=== PATIENT | female | born 1990 | race Hispanic/Latino ===

== ENCOUNTER 2020-06-22 12:07 | Day surgery (SDC) | payer MEDICAID ==
[2020-06-16 11:54] LABS: BASOPHILS % (AUTO) 0.5 % (0.0-5.0); EOSINOPHILS % (AUTO) 1.3 % (0.0-8.0); HEMATOCRIT 40.5 % (36-48); LYMPHOCYTES % (AUTO) 30.9 % (21.0-51.0); MEAN CORPUSCULAR HEMOGLOBIN 27.5 pg (27.0-33.0); MEAN CORPUSCULAR HGB CONC 32.3 g/dL (32.0-36.0); MEAN CORPUSCULAR VOLUME 84.9 fL (79-99); MONOCYTES % (AUTO) 3.7 % (3.0-13.0); NEUTROPHILS % (AUTO) 63.2 % (40.0-77.0); PLATELET COUNT (AUTO) 448 K/uL (130-400); RED BLOOD CELL COUNT(AUTO) 4.77 MIL/uL (4.00-5.50); WHITE BLOOD COUNT (AUTO) 10.9 K/uL (4.8-10.8)
[2020-06-22] VITALS (19 sets, daily range): BP systolic 101–130; BP diastolic 56–80
[~2020-06-22] VITALS: Ht 170.2 cm; Wt 115.8 kg
[~2020-06-22 12:07] MED LIST: METFORMIN PO
[2020-06-22] MEDS ORDERED: SODIUM CHLORIDE 0.9% 1000ML 1,000 ML IV ONE (12:19)
--- NOTE | 2020-06-22 12:30 | NUR ---
preop pt arrived amb in no distress. pt oriented to call light and room. will continue to monitor pt
[2020-06-22] MEDS ORDERED: INSULIN HUMULIN R 100 UNIT/ML 3ML ONE (13:07)
--- NOTE | 2020-06-22 13:15 | NUR ---
report pt fbs 270. dr thurman informed and received new orders. regular insulin 5 units sq to jonh
[2020-06-22] MEDS ORDERED: MIDAZOLAM HCL 1 MG/ML 2ML VIAL ONE (14:56)
[2020-06-22] MEDS ORDERED: SUCCINYLCHOLINE CHLORIDE 20 MG/ML 10 ML VIAL ONE (14:56)
[2020-06-22] MEDS ORDERED: LIDOCAINE PF 2% 5ML ABBOJECT ONE (14:56)
[2020-06-22] MEDS ORDERED: PROPOFOL 10 MG/ML 20ML VIAL IV ONE (14:57)
[2020-06-22] MEDS ORDERED: FENTANYL CITRATE PF 50 MCG/1 ML 2ML VIAL ONE (14:57)
[2020-06-22] MEDS ORDERED: ONDANSETRON HCL 4 MG/2 ML VIAL ONE ×2 (15:13→16:22)
[2020-06-22] MEDS ORDERED: EPHEDRINE SULFATE 50 MG/ML AMPULE ONE (15:22)
[2020-06-22] MEDS ORDERED: MEPERIDINE-PF 25 MG/ML SYG ONE ×2 (15:49→16:01)
--- NOTE | 2020-06-22 16:50 | NUR ---
DAY PT ARRIVAL PT ARRIVED FROM PACU STATES REDUCED NAUSEA. ORIENTED TO ROOM.
--- NOTE | 2020-06-22 17:25 | NUR ---
NAUSEA AND EMESIS PT STATES SMALL EMESIS EPISODE , AND RELIEF OF NAUSEA AFTER EPISODE. PT IS NOTED AAOx4
--- NOTE | 2020-06-22 17:50 | NUR ---
DAY PT DC PT IN NO APPARENT DISTRESS, STATES REDUCED NAUSEA INSTRUCTIONS GIVEN TO PT AND SISTER AT BEDSIDE. INFORMED OF NEED TO FOLLOW UP WITH PRIMARY IN ONE WEEK , AND THAT INFO WAS GIVEN TO ANSWERING SERVICE. PT TAKEN BY WHEELCHAIR TO MAIN ENTRANCE.
[2020-06-22] MEDS ORDERED: INSULIN HUMULIN R 100 UNIT/ML 3ML SQ SCH (18:00)
== END 2020-06-22 17:50 | disposition home or self-care (01) ==
LOC: DAH 12:07
PROVIDERS: ATTEND Specialist
DX: N92.0 Excessive and frequent menstruation with regular cycle (principal); E11.9 Type 2 diabetes mellitus without complications; E66.9 Obesity, unspecified; F17.210 Nicotine dependence, cigarettes, uncomplicated; Z79.899 Other long term (current) drug therapy; Z20.828 Contact with and (suspected) exposure to other viral communicable diseases
CPT/HCPCS: 36415 ×2; 58120; 82948 ×2; 84703; 85025; 86850 ×2; 86900 ×2; 86901 ×2; A4215; A4221; A4222; A4223; A4351; A4663; C9803; J0330; J1815; J2001; J2175 ×2; J2250; J2405 ×2; J2704; J3010; J3490; J7030; U0003

== ENCOUNTER 2020-10-24 21:20 | Emergency (ER) | payer MEDICAID ==
[2020-10-24 21:45] LABS: BASOPHILS % (AUTO) 0.6 % (0.0-5.0); EOSINOPHILS % (AUTO) 3.8 % (0.0-8.0); HEMATOCRIT 41.8 % (36-48); LYMPHOCYTES % (AUTO) 25.7 % (21.0-51.0); MEAN CORPUSCULAR HEMOGLOBIN 27.2 pg (27.0-33.0); MEAN CORPUSCULAR HGB CONC 32.3 g/dL (32.0-36.0); MEAN CORPUSCULAR VOLUME 84.1 fL (79-99); MONOCYTES % (AUTO) 4.6 % (3.0-13.0); PLATELET COUNT (AUTO) 458 K/uL (130-400); RED BLOOD CELL COUNT(AUTO) 4.97 MIL/uL (4.00-5.50); RED CELL DISTRIBUTION WIDTH 13.2 % (11.0-15.5); WHITE BLOOD COUNT (AUTO) 12.9 K/uL (4.8-10.8)
[2020-10-24 21:59] LABS: CREATININE 0.7 mg/dL (0.5-1.5)
[2020-10-24 22:09] LABS: ALBUMIN 3.6 g/dL (3.5-5.0); BILIRUBIN,TOTAL 0.4 mg/dL (0.2-1.0); TOTAL PROTEIN, SERUM 8.6 g/dL (6.0-8.3)
[2020-10-24 22:33] LABS: APPEARANCE,URINE Cloudy (CLEAR); BILIRUBIN,URINE Negative (NEGATIVE); COLOR,URINE Dark Yellow (YELLOW); GLUCOSE, URINE (UA) 500 mg/dL (NEGATIVE); KETONES,URINE Trace mg/dL (NEGATIVE); LEUKOCYTE ESTERASE ,URINE Trace (NEGATIVE); NITRATE,URINE Negative (NEGATIVE); OCCULT BLOOD,URINE Large (NEGATIVE); PROTEIN,URINE POS 1+ mg/dL (NEGATIVE)
[2020-10-24 22:42] LABS: HCG,QUAL RESULT NEGATIVE (NEGATIVE)
[2020-10-24 23:21] LABS: BACTERIA,URINE Few /HPF (None Seen); RBC,URINE >100 /HPF (0-1); SQUAMOUS EPITHELIAL CELL,UR 0-2 /HPF (0-2)
== END 2020-10-24 23:59 | disposition home or self-care (01) ==
LOC: EDH 21:20
DX: N93.9 Abnormal uterine and vaginal bleeding, unspecified (principal); Z72.0 Tobacco use
CPT/HCPCS: 36415; 80053; 81001; 81025; 84702; 85025

== ENCOUNTER 2020-11-18 13:00 | Inpatient (IN) | payer MEDICAID ==
[~2020-11-18] VITALS: Ht 170.2 cm; Wt 114.1 kg
[2020-11-18 11:54] LABS: BASOPHILS % (AUTO) 0.5 % (0.0-5.0); EOSINOPHILS % (AUTO) 2.8 % (0.0-8.0); HEMATOCRIT 42.2 % (36-48); LYMPHOCYTES % (AUTO) 26.9 % (21.0-51.0); MEAN CORPUSCULAR HEMOGLOBIN 27.5 pg (27.0-33.0); MEAN CORPUSCULAR HGB CONC 32.7 g/dL (32.0-36.0); MEAN CORPUSCULAR VOLUME 84.1 fL (79-99); MONOCYTES % (AUTO) 4.7 % (3.0-13.0); NEUTROPHILS % (AUTO) 64.8 % (40.0-77.0); PLATELET COUNT (AUTO) 452 K/uL (130-400); RED BLOOD CELL COUNT(AUTO) 5.02 MIL/uL (4.00-5.50); RED CELL DISTRIBUTION WIDTH 13.1 % (11.0-15.5)
[2020-11-18 12:09] LABS: INR 0.98 (0.85-1.15); PROTHROMBIN TIME 10.7 SEC (9.6-11.6)
[2020-11-18 12:11] LABS: PARTIAL THROMBOPLASTIN TIME 26.2 SEC (26.3-35.5)
[2020-11-22 11:48] VITALS: BP 129/71
[2020-11-23] VITALS (24 sets, daily range): BP systolic 106–143; BP diastolic 56–105
[2020-11-23] MEDS ORDERED: 0.9%NACL 1000ML 1,000 ML IV ONE (07:28)
[2020-11-23] MEDS ORDERED: SCOPOLAMINE HYDROBROMIDE 1 EACH ADH..PATCH TD ONE (07:38)
[2020-11-23] MEDS: CEFAZOLIN SODIUM 1 GM VIAL ONE ×2 (07:41→08:33)
[2020-11-23] MEDS ORDERED: LIDOCAINE PF 100MG/5ML (2%) SYRINGE 5ML ONE (07:52)
[2020-11-23] MEDS ORDERED: SUCCINYLCHOLINE 200MG/10ML SYR ONE (07:52)
[2020-11-23] MEDS ORDERED: FENTANYL CITRATE PF 50 MCG/1 ML 2ML VIAL ONE ×2 (07:52→08:59)
[2020-11-23] MEDS ORDERED: PROPOFOL 10 MG/ML 20ML VIAL IV ONE (07:52)
[2020-11-23] MEDS ORDERED: MIDAZOLAM HCL 1 MG/ML 2ML VIAL ONE (07:52)
[2020-11-23] MEDS ORDERED: ROCURONIUM 10MG/1ML SYR 10 MG/ML ML ONE (07:52)
[2020-11-23 07:57] LABS: CREATININE 0.7 mg/dL (0.5-1.5); POTASSIUM 4.4 mmol/L (3.5-5.1)
[2020-11-23] MEDS ORDERED: LACTATED RINGERS 1000ML 1,000 ML IV SCH (08:00)
[2020-11-23] MEDS ORDERED: KETAMINE 50MG/ML SYRINGE 50 MG/ML DISP.SYRIN IV ONE (08:00)
[2020-11-23] MEDS ORDERED: CEFAZOLIN SODIUM 100 GM IV PRN (08:00)
[2020-11-23] MEDS ORDERED: GLYCOPYRROLATE 1 MG/5 ML SYRINGE ONE (08:53)
[2020-11-23] MEDS ORDERED: NEOSTIGMINE 5MG/5ML SYR IV ONE (08:54)
[2020-11-23] MEDS ORDERED: ROPIVACAINE 0.5% 5MG/ML 30ML IJ ONE (09:44)
[2020-11-23] MEDS ORDERED: ONDANSETRON 4MG INJ ONE (09:59)
[2020-11-23] MEDS ORDERED: MEPERIDINE-PF 25 MG/ML SYG ONE ×2 (10:28→10:42)
[2020-11-23] MEDS ORDERED: IBUPROFEN 600 MG TABLET PO PRN (12:00)
[2020-11-23] MEDS ORDERED: ACETAMINOPHEN WITH CODEINE 1 TAB TAB PO PRN (12:00)
[2020-11-23] MEDS ORDERED: BISACODYL 10 MG SUPP.RECT RC PRN (12:00)
[2020-11-23] MEDS ORDERED: PROMETHAZINE HCL 25 MG/ML 1ML AMPULE IM PRN (12:00)
[2020-11-23] MEDS ORDERED: MEPERIDINE-PF 75 MG/ML SYG ONE (12:56)
[2020-11-23] MEDS: PROMETHAZINE HCL 25 MG/ML 1ML AMPULE IM PRN ×3 (13:27→21:59)
[2020-11-23] MEDS: INSULIN HUMULIN R 100 UNIT/ML 3ML SQ SCH ×2 (17:10→21:46)
[2020-11-23] MEDS: MEPERIDINE-PF 75 MG/ML SYG IM PRN ×2 (17:25→21:58)
[2020-11-23] MEDS: LACTATED RINGERS 1000ML 1,000 ML IV SCH ×2 (17:26→23:40)
[2020-11-23] MEDS: SIMETHICONE 80 MG TAB.CHEW PO PRN (21:48)
[2020-11-23] MEDS: DOCUSATE SODIUM 100 MG CAP PO PRN (21:48)
[2020-11-24 03:45] VITALS: BP 118/70
[2020-11-24 06:29] LABS: HEMATOCRIT 37.7 % (36-48); MEAN CORPUSCULAR HEMOGLOBIN 27.3 pg (27.0-33.0); MEAN CORPUSCULAR HGB CONC 31.8 g/dL (32.0-36.0); MEAN CORPUSCULAR VOLUME 85.9 fL (79-99); RED BLOOD CELL COUNT(AUTO) 4.39 MIL/uL (4.00-5.50); RED CELL DISTRIBUTION WIDTH 13.1 % (11.0-15.5); WHITE BLOOD COUNT (AUTO) 12.5 K/uL (4.8-10.8)
[2020-11-24 06:44] LABS: ALBUMIN 2.8 g/dL (3.5-5.0); BILIRUBIN,TOTAL 0.6 mg/dL (0.2-1.0); CREATININE 0.6 mg/dL (0.5-1.5); TOTAL PROTEIN, SERUM 6.5 g/dL (6.0-8.3)
[2020-11-24 06:50] LABS: HEMOGLOBIN A1C 12.2 % (4.0-6.0)
[2020-11-24 07:25] VITALS: BP 112/75
[2020-11-24] MEDS: INSULIN HUMULIN R 100 UNIT/ML 3ML SQ SCH ×4 (07:30→21:08)
[2020-11-24] MEDS: LACTATED RINGERS 1000ML 1,000 ML IV SCH (07:33)
[2020-11-24] MEDS ORDERED: ACETAMINOPHEN WITH CODEINE 1 TAB TAB PO PRN (10:30)
[2020-11-24] MEDS ORDERED: HYDROCODONE/ACETAMINOPHEN 5/325 MG TAB ONE (10:33)
[2020-11-24] MEDS: SIMETHICONE 80 MG TAB.CHEW PO PRN ×2 (10:41→21:00)
[2020-11-24] MEDS: DOCUSATE SODIUM 100 MG CAP PO PRN ×2 (10:42→21:00)
[2020-11-24] MEDS: HYDROCODONE/ACETAMINOPHEN 5/325 MG TAB PO PRN ×2 (10:43→15:32)
[2020-11-24 16:25] VITALS: BP 116/67
[2020-11-24 19:41] VITALS: BP 119/64
[2020-11-24] MEDS: IBUPROFEN 800 MG TAB PO PRN (21:17)
[2020-11-24 23:30] VITALS: BP 101/57
[2020-11-25 03:25] VITALS: BP 129/66
[2020-11-25 07:14] VITALS: BP 107/60
[2020-11-25] MEDS: INSULIN HUMULIN R 100 UNIT/ML 3ML SQ SCH ×2 (07:15→11:28)
[2020-11-25] MEDS: DOCUSATE SODIUM 100 MG CAP PO PRN (09:40)
[2020-11-25] MEDS: IBUPROFEN 800 MG TAB PO PRN (09:40)
[2020-11-25] MEDS: SIMETHICONE 80 MG TAB.CHEW PO PRN (09:40)
[2020-11-25 11:24] VITALS: BP 94/60
== END 2020-11-25 13:40 | disposition home or self-care (01) | DRG 513 ==
LOC: EDSTATUS 13:00 → DAHIP 11-23 07:13 → WSH 11-23 11:22
PROVIDERS: ADMIT Specialist; ATTEND Specialist
PROC: 0UT90ZZ Resection of Uterus, Open Approach (ICD-10-PCS; principal; 2020-11-23 08:16)
DX: N92.1 Excessive and frequent menstruation with irregular cycle (principal); N94.6 Dysmenorrhea, unspecified; E11.9 Type 2 diabetes mellitus without complications; Z20.822 Contact with and (suspected) exposure to COVID-19
CPT/HCPCS: 36415; 80048; 80053; 82948; 83036; 84703; 85025; 85027; 85610; 85730; 86850; 86900; 86901; 88307; A4344; G0378; J0330; J0690; J1815; J2001; J2175; J2250; J2405; J2550; J2704; J2710; J2795; J3010; J3490; J7030; J7120; U0003

== ENCOUNTER → 2022-08-17 | Outpatient (CLI) | payer MEDICAID | END | disposition home or self-care (01) | LOC: RAH 14:26 | PROVIDERS: ATTEND Family Medicine | DX: N63.11 Unspecified lump in the right breast, upper outer quadrant (principal) | CPT/HCPCS: 76641 ==

== ENCOUNTER 2024-06-08 15:48 | Emergency (ER) | payer MEDICAID ==
[~2024-06-08] VITALS: Ht 170.2 cm; Wt 100.7 kg
--- NOTE | 2024-06-08 16:10 | ERN ---
ED Note History of Present Illness Stated Complaint: HYPERGLYCEMIA, DIZZINESS Chief Complaint: Hyperglycemia Time Seen by MD: 15:53 Dictation: PATIENT IS A 33-YEAR-OLD FEMALE COMING IN FROM A LOCAL CLINIC STATING THAT SHE HAD BLOOD SUGAR GREATER THAN 400 AND HAS NOT BEEN TAKING HER MEDICATIONS SINCE LAST YEAR. SHE STATES SHE NORMALLY WOULD GO TO [facility] HOWEVER HER DOCTOR RETIRED AND EVERY TIME SHE WENT SHE HAD TO BE REINTRODUCED TO A NEW DOCTOR SO SHE QUIT GO IN LAST YEAR AND QUIT TAKEN HER MEDICATIONS. STATES SHE WAS NAUSEATED YESTERDAY SHE IS ON NO CHRONIC MEDICATIONS AT THIS TIME Allergies: Coded Allergies: No Known Drug Allergies (Verified Allergy, Unknown, 06/21/20) Home Meds Active Scripts Metformin HCl (Metformin HCl) 1,000 Mg Tablet, 1000 MG PO BID, #60 TAB 1 Refill Prov:EMIGDIO AGUIAR NP 06/08/24 Past Medical History Past Medical History: Diabetes-Type II Surgical History: Hysterectomy History: Not Applicable RN Note Reviewed/Agreed w/PFSH: Yes Review of System Dictation CONSTITUTIONAL: NEGATIVE EXCEPT FOR HPI HEAD/FACE: NEGATIVE EXCEPT FOR HPI EENT: NEGATIVE EXCEPT FOR HPI RESPIRATORY: NEGATIVE EXCEPT FOR HPI GASTROINTESTINAL/ABDOMINAL: NEGATIVE EXCEPT FOR HPI NAUSEA VOMITING GENITOURINARY: NEGATIVE EXCEPT FOR HPI MUSCULOSKELETAL: NEGATIVE EXCEPT FOR HPI INTEGUMENTARY: NEGATIVE EXCEPT FOR HPI NEUROLOGICAL/PSYCH: NEGATIVE EXCEPT FOR HPI HEMATOLOGIC/LYMPHATIC: NEGATIVE EXCEPT FOR HPI ALL SYSTEMS NEGATIVE, EXCEPT NOTED ABOVE. 13 POINT REVIEW OF SYSTEMS ASSESSED AND ALL NEGATIVE EXCEPT FOR ABOVE. Initial Vital Sign VS Vital Signs Date Time Temp Pulse Resp B/P (MAP) Pulse Ox O2 Delivery O2 Flow Rate FiO2 06/08/24 15:50 97.9 82 16 136/87 94 Room Air 0 06/08/24 16:29 21 Physical Exam Dictation VITAL SIGNS REVIEWED GENERAL APPEARANCE: ALERT, ORIENTED X 3, NO ACUTE DISTRESS, WELL DEVELOPED, NOURISHED. HEAD AND FACE: NON-TRAUMATIC. EYES: PERRL, PINK CONJUNCTIVAS, EYELID NO TRAUMA, ANTERIOR CHAMBER WITH ARCUS SENILIS. EARS: PINNAS INTACT AND NO SIGNS OF TRAUMA OR ERYTHEMA EAR CANALS CLEAR AND NO DISCHARGE TM NO ERYTHEMA NOSE: NO DISCHARGE, NO BLEEDING. OROPHARYNX: MOUTH NORMAL, TONGUE PINK, PHARYNX CLEAR,NO ERYTHEMA, TONSILS NO EXUDATES, NO ABSCESSES NOTED, MUCOUS MEMBRANE MOIST NECK: SUPPLE, NON-TENDER, NO THYROMEGALY, NO MASSES, NO JVD, NO BRUITS BREAST:DEFERRED CHEST:NO TENDERNESS, NO CREPITUS, NO PARADOXICAL MOVEMENT, NO RETRACTIONS LUNGS:CLEAR, WELL-VENTILATED, SYMMETRIC, NO RALES, NO WHEEZING, NO RHONCHI, NO STRIDOR, GOOD BREATH SOUNDS BILATERALLY HEART: REGULAR RATE, REGULAR RHYTHM, NO MURMUR, NO GALLOPS VASCULAR: NO PERIPHERAL EDEMA, ABDOMEN: SOFT, POSITIVE BOWEL SOUNDS, NONDISTENDED, NO GUARDING, NONTENDER, NO REBOUND, NO MASSES NO HEPATOMEGALY, NO SPLENOMEGALY, NO PARKER'S SIGN, NO HERNIAS. NO FOCAL TENDERNESS, NAUSEA ONLY RECTAL: DEFERRED GENITAL: DEFERRED NEUROLOGICAL: NORMAL SPEECH, MOTOR FUNCTION INTACT, SENSORY FUNCTION INTACT MUSCULOSKELETAL: NECK NONTENDER, FULL RANGE OF MOTION, BACK NONTENDER, FULL RANGE OF MOTION, EXTREMITIES: NONTENDER, FULL RANGE OF MOTION SKIN: COLOR PINK, DRY, NO TURGOR, NO RASH, NO LACERATIONS, NO ABRASIONS, NO CONTUSIONS. LYMPHATIC: DEFERRED Results (Laboratory/Radiology) Laboratory/Radiology Labs Reviewed?: Yes ED Course ED Course 1827, REPEAT BLOOD SUGAR 2007 PATIENT DISCHARGED HOME TO FOLLOW UP WITH HER PRIMARY CARE DOCTOR IN 1-2 DAYS, FOLLOW A DIABETIC DIET, METFORMIN A 1000 MG B.I.D.. ALSO TOLD HER INCREASE HER FLUIDS Medical Decision Making MDM MDM: DIFFERENTIAL DIAGNOSIS: DKA/UNCONTROLLED DIABETES/ELECTROLYTE IMBALANCE/DEHYDRATION/MEDICAL NONCOMPLIANCE RATIONALE: TESTS CONSIDERED AND ORDERED SECONDARY TO SHARED DECISION MAKING INCLUDE: LABS/UA PREVIOUS OUTSIDE RECORDS REVIEWED: OLD ER VISITS. REVIEWED RISK OF COMPLICATION AND/OR MORBIDITY OR MORTALITY OF PATIENT MANAGEMENT: MODERATE TO SEVERE IF PATIENT CHOOSES NOT TO MAINTAIN DIABETIC DIET AND BE COMPLIANT WITH HER MEDICATIONS MEDICATIONS-PER MEDICATION RECONCILIATION SEE NURSE'S NOTES NEED FOR HOSPITALIZATION: PATIENT DOES NOT MEET CRITERIA FOR HOSPITALIZATION. NO NEED FOR EMERGENCY MAJOR/MINOR SURGERY: NO THERE ARE NO SOCIAL CONCERNS WITH THIS PATIENT. MEDICALLY NONCOMPLIANT PRESCRIPTION DRUG MANAGEMENT METFORMIN PRESCRIPTIONS WILL INCLUDE SYMPTOMATIC CARE PATIENT'S PRIOR EXTERNAL MEDICAL RECORDS FROM OTHER ER VISITS WERE REVIEWED BY ME INDICATED. PRIOR TESTING AND RESULTS FROM PREVIOUS VISITS WERE REVIEWED. PRIOR TESTS WERE TAKEN INTO ACCOUNT WITH MEDICAL DECISION MAKING AND RESOURCE UTILIZATION, INDEPENDENT HISTORIAN/HISTORIANS WERE USED TO OBTAIN COMPLETE MEDICAL HISTORY. I INDEPENDENTLY INTERPRETED THE TEST THAT WERE PERFORMED, RESULTS WERE REVIEWED BY ME AND CONSIDERED FINDINGS ON RADIOLOGY IF ORDERED. MEDICAL MANAGEMENT AND EXAMINATION INTERPRETATION DISCUSSIONS WERE HAD BY ME WITH OTHER QUALIFIED HEALTHCARE PROFESSIONALS INDICATED FOR THE PATIENT'S CARE. DX & DISP Disposition: Discharge Departure Impression: Primary Impression: Uncontrolled diabetes mellitus Additional Impressions: Dehydration, Medically noncompliant, Obesity Condition: Stable Scripts Metformin HCl (Metformin HCl) 1,000 Mg Tablet 1000 MG PO BID, #60 TAB 1 Refill Prov: EMIGDIO AGUIAR NP 06/08/24 Additional Instructions: FOLLOW-UP WITH PRIMARY CARE PROVIDER IN 1 TO 2 DAYS. TAKE MEDICATIONS DIRECTED HERE IN THE EMERGENCY ROOM. OKAY TO CONTINUE HOME MEDICATIONS UNLESS OTHERWISE DISCUSSED DURING YOUR VISIT IN THE EMERGENCY ROOM TODAY. RETURN TO YOUR NEAREST EMERGENCY ROOM IF SYMPTOMS WORSEN OR IF THERE IS NO IMPROVEMENT. CALL 911 IF YOU NEED IMMEDIATE ASSISTANCE. TAKE TYLENOL OR MOTRIN [id number] NEEDED AND IF NO CONTRAINDICATIONS ARE PRESENT. INCREASE ORAL HYDRATION. A WOUND CULTURE OR URINE CULTURE WAS ORDERED HERE IN THE EMERGENCY ROOM DEPARTMENT PLEASE FOLLOW-UP WITH PRIMARY CARE PROVIDER AND ADVISE THEM TO GET REPEAT PORTS FROM OUR FACILITY. IF YOU HAD ANY AARON WRAP/SPLINTS THAT WERE APPLIED HERE, PLEASE DO NOT REMOVE THEM UNTIL YOU SEE YOUR PRIMARY CARE OR SPECIALTY. MEDICALLY CLEARED FOR WORK TOMORROW. TAKE METFORMIN 1000 MG TWICE A DAY DIRECTED WITH FOOD. FOLLOW UP WITH YOUR DOCTOR AT THE DAY AND NIGHT CLINIC FOR MANAGEMENT. Referrals: SELF,REFERRAL (PCP) Time of Disposition: 18:29 I have reviewed the case, and I agree with, Diagnosis and Plan I performed this substantive portion of this visit. I have reviewed and danny murrieta made and approve the management plan that is documented in the note by myself or the BUTCH. I acknowledge full responsibility for the patient's management plan. EMIGDIO AGUIAR NP Jun 08, 2024 16:10 CRISTINA HILL MD Jul 12, 2024 10:03
[2024-06-08] MEDS: 0.9%NACL 1000ML 1,000 ML IV ONE (16:21)
[2024-06-08] MEDS: ondanSETRON 4MG INJ IVP ONE (16:21)
[2024-06-08 16:25] LABS: BASOPHILS # (AUTO) 0.07 K/uL (0.00-0.20); BASOPHILS % (AUTO) 0.6 % (0.0-5.0); EOSINOPHILS # (AUTO) 0.17 K/uL (0.00-0.70); EOSINOPHILS % (AUTO) 1.4 % (0.0-8.0); HEMATOCRIT 46.5 % (36-48); IMMATURE GRANULOCYTE ABSOLUTE 0.05 K/uL (0-1); LYMPHOCYTES # (AUTO) 3.6 K/uL (1.0-4.8); LYMPHOCYTES % (AUTO) 29.8 % (21.0-51.0); MEAN CORPUSCULAR HEMOGLOBIN 27.9 pg (27.0-33.0); MEAN CORPUSCULAR HGB CONC 32.5 g/dL (32.0-36.0); MONOCYTES # (AUTO) 0.5 K/uL (0.1-1.0); MONOCYTES % (AUTO) 4.3 % (3.0-13.0); NEUTROPHILS # (AUTO) 7.8 K/uL (1.8-7.7); NEUTROPHILS % (AUTO) 63.5 % (40.0-77.0); PLATELET COUNT (AUTO) 505 K/uL (130-400); RED BLOOD CELL COUNT(AUTO) 5.41 MIL/uL (4.00-5.50); RED CELL DISTRIBUTION WIDTH 12.9 % (11.0-15.5); WHITE BLOOD COUNT (AUTO) 12.2 K/uL (4.8-10.8)
[2024-06-08 16:41] LABS: CREATININE 0.8 mg/dL (0.5-1.0); POTASSIUM 3.9 mmol/L (3.5-5.1)
[2024-06-08] MEDS: INSULIN humuLIN R 100 UNIT/ML 3ML IV ONE (17:35)
[2024-06-08 18:07] LABS: APPEARANCE,URINE CLEAR (CLEAR); BILIRUBIN,URINE NEGATIVE (NEGATIVE); COLOR,URINE LIGHT-YELLOW (YELLOW); GLUCOSE, URINE (UA) >=1000 mg/dL (NEGATIVE); HCG,QUALITATIVE URINE NEGATIVE (NEGATIVE); KETONES,URINE NEGATIVE (NEGATIVE); LEUKOCYTE ESTERASE ,URINE NEGATIVE Leu/uL (NEGATIVE); NITRATE,URINE NEGATIVE (NEGATIVE); OCCULT BLOOD,URINE NEGATIVE (NEGATIVE); PH,URINE 5.5 (5.0-8.0); PROTEIN,URINE 10 mg/dL (NEGATIVE); UROBILINOGEN,URINE 0.2 mg/dL (0.2-1.0)
[2024-06-08 18:08] LABS: ADD UA MICROSCOPIC YES
[2024-06-08 18:09] LABS: BACTERIA,URINE RARE /HPF (None Seen); MUCUS,URINE RARE LPF (None Seen); RBC,URINE 0-1 /HPF (0-1); SQUAMOUS EPITHELIAL CELL,UR FEW /HPF (0-2)
[2024-06-08] MEDS ORDERED: METF-446 PO (18:29)
[2024-06-08 18:41] VITALS: BP 110/68; PULSE 67; RESP 17; TEMP 98; O2SAT 98
== END 2024-06-08 18:59 | disposition home or self-care (01) ==
LOC: EDH 15:48
DX: E11.65 Type 2 diabetes mellitus with hyperglycemia (principal); E86.0 Dehydration; E66.9 Obesity, unspecified; Z91.199 Patient's noncompliance with other medical treatment and regimen due to unspecified reason; Z90.710 Acquired absence of both cervix and uterus; Z79.84 Long term (current) use of oral hypoglycemic drugs
CPT/HCPCS: 99284; 96374; 96361; 96375; 80048; 85025; 82948; 82010; 81001; 81025; 36415; J1815; J7030; J2405